=== PATIENT | female | born 1975 | race Caucasian/White ===

== ENCOUNTER → 2023-04-23 10:55 | Outpatient (REF) | payer BC, SELFPAY | LOC: HWRAD 10:55 | PROVIDERS: ATTENDING PHYSICIAN Physician Assistant Medical | DX: M25.611 Stiffness of right shoulder, not elsewhere classified (principal) | CPT/HCPCS: 73030 ==

== ENCOUNTER 2023-09-16 13:13 | Emergency (ER) | payer BC, SELFPAY ==
[2023-09-16 13:21] VITALS: BP 158/87
--- NOTE | 2023-09-16 13:32 | EDRN ---
There is some bruising/ ecchymosis thenar eminence developing
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
[2023-09-16] MEDS: KEFLEX 500 MG PO (14:01)
[2023-09-16] MEDS: ADACEL 0.5 ML IM (14:01)
== END 2023-09-16 14:11 | disposition home or self-care (01) ==
LOC: EMR 13:13
PROVIDERS: EMERGENCY PHYSICIAN Emergency Medicine; FAMILY PHYSICIAN Physician Assistant Medical
DX: S61.511A Laceration without foreign body of right wrist, initial encounter (principal); X58.XXXA Exposure to other specified factors, initial encounter
CPT/HCPCS: 99282; 90471; 90715

== ENCOUNTER → 2024-03-09 09:00 | Outpatient (REF) | payer BC, SELFPAY | LOC: RAD 09:00 | PROVIDERS: ATTENDING PHYSICIAN Physician Assistant Medical | DX: R14.0 Abdominal distension (gaseous) (principal); R10.13 Epigastric pain | CPT/HCPCS: 74177; Q9967 ==